=== PATIENT | male | born 1985 | race Caucasian/White ===

== ENCOUNTER 2022-04-18 10:12 | Emergency (ER) | payer MEDICAID, SELFPAY ==
[~2022-04-18] VITALS: Ht 180.3 cm; Wt 88.8 kg
[2022-04-18 10:13] VITALS: BP 135/83
[2022-04-18] MEDS ORDERED: BENZOCAINE 20% GEL 9GM TUBE (ANBESOL MAX STRENGTH) TOP ONE (11:55)
[2022-04-18] MEDS ORDERED: ACETAMINOPHEN 500 MG TAB PO ONE (11:55)
[2022-04-18] MEDS ORDERED: IBUP80TA PO (11:58)
[2022-04-18] MEDS ORDERED: AMOX875T2 PO (11:58)
== END 2022-04-18 12:06 | disposition home or self-care (01) ==
LOC: M ED 10:12
DX: S02.5XXA Fracture of tooth (traumatic), initial encounter for closed fracture (principal); R68.84 Jaw pain; K02.9 Dental caries, unspecified

== ENCOUNTER → 2022-08-15 | Outpatient (CLI) | payer SELFPAY ==
[~2022-08-15] MED LIST: AMOX875T2 PO; IBUP80TA PO
== END ==
LOC: M OUTALCOH 07:53
PROVIDERS: ATTEND Psychiatry & Neurology Psychiatry
DX: F10.10 Alcohol abuse, uncomplicated (principal)

== ENCOUNTER 2024-02-08 15:06 | Emergency (ER) | payer SELFPAY ==
[~2024-02-08] VITALS: Ht 180.3 cm; Wt 86.1 kg
[2024-02-08] MEDS: ACETAMINOPHEN 500 MG TAB PO ONE (18:57)
[2024-02-08 20:24] VITALS: BP 144/89; TEMP 97.1; O2SAT 98
== END 2024-02-08 20:29 | disposition home or self-care (01) ==
LOC: M ED 15:06
DX: S62.316A Displaced fracture of base of fifth metacarpal bone, right hand, initial encounter for closed fracture (principal); W22.8XXA Striking against or struck by other objects, initial encounter; F10.90 Alcohol use, unspecified, uncomplicated; Y92.009 Unspecified place in unspecified non-institutional (private) residence as the place of occurrence of the external cause; Y93.89 Activity, other specified; Y99.9 Unspecified external cause status